=== PATIENT | male | born 1935 | race Caucasian/White ===

== ENCOUNTER 2019-12-09 08:40 | Day surgery (SDC) | payer MEDICARE, BC ==
[~2019-12-09] VITALS: Ht 175.3 cm; Wt 63.3 kg
[2019-12-09] VITALS (15 sets, daily range): BP systolic 129–166; BP diastolic 52–88
[2019-12-09] MEDS ORDERED: normal saline 1000ml 1,000 ML IV SCH (09:45)
[2019-12-09] MEDS ORDERED: midazolam 2 mg/2 ml injection IV ONE (09:50)
[2019-12-09] MEDS ORDERED: fentaNYL/PF 50MCG/1 ML 2ML syringe IV ONE (09:50)
[2019-12-09] MEDS ORDERED: METO25TA6 PO (10:01)
[2019-12-09] MEDS ORDERED: HYDR-4353 PO (10:01)
[2019-12-09] MEDS ORDERED: OMEP40CA13 PO (10:01)
[2019-12-09] MEDS ORDERED: LIDO30CR47 TOP (10:01)
[2019-12-09] MEDS ORDERED: URSO250T3 PO (10:01)
[2019-12-09] MEDS ORDERED: ATOR20TA66 PO (10:01)
[2019-12-09] MEDS ORDERED: AMLO10TA PO (10:01)
[2019-12-09 10:07] LABS: BASOPHILS # (AUTO) 0.1 X10'3 (0-0.2); BASOPHILS % (AUTO) 0.7 % (0-1); EOSINOPHILS # (AUTO) 0.4 X10'3 (0-0.9); EOSINOPHILS % (AUTO) 4.3 % (0-6); HEMATOCRIT 35.4 % (42.0-52.0); LYMPHOCYTES # (AUTO) 1.4 X10'3 (1.1-4.8); MEAN CORPUSCULAR HEMOGLOBIN 32.5 PG (27.0-31.0); MEAN CORPUSCULAR HGB CONC 33.7 g/dL (33.0-36.5); MEAN CORPUSCULAR VOLUME 96.3 FL (78-98); MEAN PLATELET VOLUME 7.6 FL (7.4-10.4); MONOCYTES # (AUTO) 0.9 X10'3 (0-0.9); NEUTROPHILS # (AUTO) 5.6 X10'3 (1.8-7.7); PLATELET COUNT 387 X10'3 (140-440); RED BLOOD COUNT 3.68 X10'6 (4.70-6.10); RED CELL DISTRIBUTION WIDTH 16.9 % (11.5-14.5); WHITE BLOOD COUNT 8.3 X10'3 (4.5-11.0)
== END 2019-12-09 13:30 | disposition home or self-care (01) ==
LOC: SSTAY O 08:40
PROVIDERS: ATTEND Radiology Diagnostic Radiology
DX: R74.8 Abnormal levels of other serum enzymes (principal); K74.0 Hepatic fibrosis; J63.4 Siderosis; E78.00 Pure hypercholesterolemia, unspecified; K21.9 Gastro-esophageal reflux disease without esophagitis; I10 Essential (primary) hypertension; M54.5 Low back pain; G89.29 Other chronic pain; Z90.49 Acquired absence of other specified parts of digestive tract; Z95.1 Presence of aortocoronary bypass graft; Z88.0 Allergy status to penicillin; Z79.899 Other long term (current) drug therapy
CPT/HCPCS: 36415; 47000; 76942; 85025; 85610; 99152; 99153; J2250; J3010; J7030; 88307; 88313